=== PATIENT | female | born 1990 | race Caucasian/White ===

== ENCOUNTER 2019-09-24 18:51 | Emergency (ER) | payer MEDICAID ==
[2019-09-24] MEDS ORDERED: Sodium Chloride 0.9% 10 ML Syringe FLUSH PRN (19:21)
[2019-09-24] MEDS ORDERED: Sodium Chloride 0.9% 2.5 ML Syringe FLUSH PRN (19:21)
[2019-09-24] MEDS ORDERED: Aspirin 81 MG Tab.Chew PO ONE (19:21)
--- NOTE | 2019-09-24 19:26 | EDM.PDOC ---
ED HPI GENERAL MEDICAL PROBLEM - General Chief Complaint: Chest Pain Stated Complaint: SHORT PAIN INARM Time Seen by Provider: 09/24/19 19:12 - History of Present Illness INITIAL COMMENTS - FREE TEXT/NARRATIVE: HISTORY AND PHYSICAL: History of present illness: The patient is a 29-year-old female with no significant cardiac or pulmonary history who presents with complaints of mid back pain that stabs and radiates to her mid chest that started about an hour and a half ago. According to the patient she had a normal day without any systemic issues and during which she ate and drank and did her normal activities as a [id number] mom. She says that she was at rest when this started and she felt like someone had stabbed her in the back and it went through to her anterior chest. It does not radiate to her neck, she does have a separate ache in her left neck but it does not originate from this back and chest pain. She has no weakness numbness or tingling in her upper extremities no vomiting but did have some nausea when the pain started. She is currently not nauseated and has no abdominal pain. She has had a dry cough for the last 2 days but she is not concerned about that reported she have any fever with this. She is a smoker of one pack per day and her only significant family history as above mother with mitral valve prolapse. She does drink a lot of coffee throughout the day for total of one 12 cup pot. She has no recent travel and no leg pain or swelling. She says when the discomfort started it was a 9/10 and currently is 5/10. She did take 1 g of Tylenol prior to coming here as her only medication. She has no history of food intolerance and does not take antacids on any regular basis. She has a history of bipolar and a bilateral tubal ligation but no other abdominal surgical history. She has no GI history. She says the pain is worse with deep breathing and certain movements and she denies any recent trauma. She says that she does lift her 3-year-old child a lot who weighs about 50 pounds. Review of systems: As per history of present illness and below otherwise all systems reviewed and negative. Past medical history: As per history of present illness and as reviewed below otherwise noncontributory. Surgical history: As per history of present illness and as reviewed below otherwise noncontributory. Social history: No reported history of drug or alcohol abuse. Family history: As per history of present illness and as reviewed below otherwise noncontributory. Physical exam: General: Well-developed well-nourished overweight female who is nontoxic and vital signs are noted by me. She is speaking clearly and easily without breathlessness HEENT: Atraumatic, normocephalic, , negative for conjunctival pallor or scleral icterus, mucous membranes moist, throat clear, neck supple, nontender, trachea midline. Lungs: Clear to auscultation, breath sounds equal bilaterally, chest wall at the mid sternum and costochondral areas has reproducible tenderness without defects deformities or crepitus. There are no soft tissue changes. When I palpate this area the patient says this does reproduce her pain. She has no wheezing or stridor Heart: S1S2, regular, negative for clicks, rubs, or JVD. Abdomen: Soft, nondistended, nontender. Negative for masses or hepatosplenomegaly. Negative for costovertebral tenderness. Pelvis: Stable nontender. Genitourinary: Deferred. Rectal: Deferred. Extremities: Atraumatic, negative for cords or calf pain. Neurovascular unremarkable. No pedal edema or leg asymmetry Neuro: Awake, alert, oriented. Cranial nerves II through XII unremarkable. Cerebellum unremarkable. Motor and sensory unremarkable throughout. Exam nonfocal. Diagnostics: EKG CBC CMP amylase lipase INR troponin d-dimer chest x-ray CTA Chest Blood pressure in right and left arms Therapeutics: IV O2 monitor aspirin sublingual nitroglycerin Nitropaste toradol After 2 sublingual nitroglycerin the patient no longer has any chest pain. We will place a half an inch of nitro paste. In light of the slightly positive d- dimer we will proceed to do CTA of the chest. Blood pressure in the left arm is 112/76 and in the right arm is 120/75 As we're waiting for the CT scan results I did pass by the patient's room and here the patient's cough which is somewhat harsh sounding and dry. She is aware that we are waiting for the results. I discussed with the patient all testing results including the CTA of the chest and options for either 23 hour admission or follow-up with Dr. Charles at [facility]. The patient does not have a classic presentation and although she responded to nitroglycerin there is reproducibility to her chest pain. She is currently speaking with her family and deciding what she would like to do but I stressed to her that I cannot rule out a cardiac event with just one set of testing and that the more conservative and safer approach would be for observation. She states understanding. Family is now at bedside and the patient would like to go home and follow-up as an outpatient. We will remove the Nitropaste and have advised [id number] nonsteroidals to help with pain and to contact her provider at [facility] first thing in the morning for follow-up Impression: Atypical Chest pain and back pain Definitive disposition and diagnosis as appropriate pending reevaluation and review of above. chest pain Pain Score (Numeric/FACES): 8 - Related Data Allergies Allergy/AdvReac Type Severity Reaction Status Date / Time Penicillins Allergy Other Verified 09/24/19 18:56 Home Meds: Home Meds . [No Known Home Meds] 09/24/19 [History] Past Medical History - Past Health History Medical/Surgical History: Denies Medical/Surgical History Psychiatric History: Reports: Bipolar - Past Surgical History Female Surgical History: Reports: Tubal Ligation Social & Family History - Family History Family Medical History: Noncontributory - Tobacco Use Smoking Status *Q: Current Every Day Smoker Years of Tobacco use: 13 Packs/Tins Daily: 1 - Recreational Drug Use Recreational Drug Use: No ED ROS GENERAL - Review of Systems Review Of Systems: ROS reveals no pertinent complaints other than HPI. ED EXAM, GENERAL - Physical Exam Exam: See Below (See dictation) Course - Vital Signs Last Recorded V/S: Last Vital Signs Temp 36.8 C 09/24/19 18:54 Pulse 74 09/24/19 21:30 Resp 17 09/24/19 21:30 BP 117/75 09/24/19 21:30 Pulse Ox 97 09/24/19 21:30 - Orders/Labs/Meds Orders: Active Orders 24 hr Category Date Time Status Cardiac Monitoring [RC] . DIRECTED Care 09/24/19 19:20 Active Communication Order [RC] STAT Care 09/24/19 19:20 Active EKG Documentation Completion [RC] STAT Care 09/24/19 19:20 Active Oxygen Therapy, ED [RC] ASDIRECTED Care 09/24/19 19:20 Active Pulse Oximetry [RC] ASDIRECTED Care 09/24/19 19:20 Active Nitroglycerin [Nitrostat] Med 09/24/19 19:21 Active 0.4 mg SL Q5M PRN Sodium Chloride 0.9% [Saline Flush] Med 09/24/19 19:21 Active 10 ml FLUSH ASDIRECTED PRN Sodium Chloride 0.9% [Saline Flush] Med 09/24/19 19:21 Active 2.5 ml FLUSH ASDIRECTED PRN Saline Lock Insert [OM.PC] Stat Oth 09/24/19 19:20 Ordered Medication Orders Nitroglycerin (Nitrostat) 0.4 mg SL Q5M PRN PRN Reason: Chest Pain Last Admin: 09/24/19 19:41 Dose: 0.4 mg Admin: 09/24/19 19:36 Dose: 0.4 mg Sodium Chloride (Saline Flush) 10 ml FLUSH ASDIRECTED PRN PRN Reason: Keep Vein Open Last Admin: 09/24/19 19:36 Dose: 10 ml Sodium Chloride (Saline Flush) 2.5 ml FLUSH ASDIRECTED PRN PRN Reason: Keep Vein Open Last Admin: 09/24/19 19:36 Dose: 2.5 ml Labs: Laboratory Tests 09/24/19 09/24/19 09/24/19 Range/Units 18:58 18:58 18:58 WBC 6.39 (4.0-11.0) K/uL RBC 4.88 (4.30-5.90) M/uL Hgb 14.1 (12.0-16.0) g/dL Hct 41.9 (36.0-46.0) % MCV 85.9 (80.0-98.0) fL MCH 28.9 (27.0-32.0) pg MCHC 33.7 (31.0-37.0) g/dL RDW Std Deviation 39.5 (28.0-62.0) fl RDW Coeff of Jean Claude 13 (11.0-15.0) % Plt Count 215 (150-400) K/uL MPV 10.70 (7.40-12.00) fL Neut % (Auto) 58.0 (48.0-80.0) % Lymph % (Auto) 30.7 (16.0-40.0) % [facility] % (Auto) 7.7 (0.0-15.0) % Eos % (Auto) 3.6 (0.0-7.0) % Baso % (Auto) 0.0 (0.0-1.5) % Neut # (Auto) 3.7 (1.4-5.7) K/uL Lymph # (Auto) 2.0 (0.6-2.4) K/uL [facility] # (Auto) 0.5 (0.0-0.8) K/uL Eos # (Auto) 0.2 (0.0-0.7) K/uL Baso # (Auto) 0.0 (0.0-0.1) K/uL Nucleated RBC % 0.0 /100WBC Nucleated RBCs # 0 K/uL INR 0.93 D-Dimer, Quantitative 0.58 H (0.0-0.50) mg/L FEU Sodium 141 (136-145) mmol/L Potassium 4.0 (3.5-5.1) mmol/L Chloride 105 (98-107) mmol/L Carbon Dioxide 27.2 (21.0-32.0) mmol/L BUN 18 (7.0-18.0) mg/dL Creatinine 1.3 H (0.6-1.0) mg/dL Est Cr Clr Drug Dosing 58.70 mL/min Estimated GFR (MDRD) 47.8 ml/min Glucose 95 (74-106) mg/dL Calcium 8.9 (8.5-10.1) mg/dL Total Bilirubin 0.4 (0.2-1.0) mg/dL AST 16 (15-37) IU/L ALT 17 (14-63) IU/L Alkaline Phosphatase 46 (46-116) U/L Troponin I <0.050 (0.000-0.056) ng/mL Total Protein 7.4 (6.4-8.2) g/dL Albumin 4.0 (3.4-5.0) g/dL Globulin 3.4 (2.6-4.0) g/dL Albumin/Globulin Ratio 1.2 (0.9-1.6) Amylase 53 (25-115) U/L Lipase 205 (73-393) U/L Meds: Medications Generic Name Dose Route Start Last Admin Trade Name Freq PRN Reason Stop Dose Admin Nitroglycerin 0.4 mg 09/24/19 19:21 09/24/19 19:41 Nitrostat SL 0.4 mg Q5M PRN Administration Chest Pain Sodium Chloride 10 ml 09/24/19 19:21 09/24/19 19:36 Saline Flush FLUSH 10 ml ASDIRECTED PRN Administration Keep Vein Open Sodium Chloride 2.5 ml 09/24/19 19:21 09/24/19 19:36 Saline Flush FLUSH 2.5 ml ASDIRECTED PRN Administration Keep Vein Open Discontinued Medications Generic Name Dose Route Start Last Admin Trade Name Freq PRN Reason Stop Dose Admin Aspirin 324 mg 09/24/19 19:21 09/24/19 19:34 Aspirin PO 09/24/19 19:22 324 mg ONETIME ONE Administration Iopamidol 100 ml 09/24/19 20:48 09/24/19 20:49 Isovue-370 (76%) IVPUSH 09/24/19 20:49 100 ml ONETIME STA Administration Ketorolac Tromethamine 30 mg 09/24/19 20:06 09/24/19 20:10 Toradol IVPUSH 09/24/19 20:07 30 mg ONETIME ONE Administration Nitroglycerin 0.5 gm 09/24/19 19:47 09/24/19 20:01 Nitro-Bid 2% TOP 09/24/19 19:48 0.5 gm ONETIME ONE Administration Departure - Departure Time of Disposition: 21:50 Disposition: Home, Self-Care 01 Condition: Good Clinical Impression: Atypical chest pain Back pain Qualifiers: Back pain location: thoracic back pain Chronicity: acute Back pain laterality: bilateral Qualified Code(s): M54.6 - Pain in thoracic spine - Discharge Information Referrals: PCP,Not In Area [Primary Care Provider] - Forms: ED Department Discharge Additional Instructions: The following information is given to patients seen in the emergency department who are being discharged to home. This information is to outline your options for follow-up care. We provide all patients seen in our emergency department with a follow-up referral. The need for follow-up, as well as the timing and circumstances, are variable depending upon the specifics of your emergency department visit. If you don't have a primary care physician on staff, we will provide you with a referral. We always advise you to contact your personal physician following an emergency department visit to inform them of the circumstance of the visit and for follow-up with them and/or the need for any referrals to a consulting specialist. The emergency department will also refer you to a specialist when appropriate. This referral assures that you have the opportunity for followup care with a specialist. All of these measure are taken in an effort to provide you with optimal care, which includes your followup. Under all circumstances we always encourage you to contact your private physician who remains a resource for coordinating your care. When calling for followup care, please make the office aware that this follow-up is from your recent emergency room visit. If for any reason you are refused follow-up, please contact the [facility] emergency department at and ask to speak to the emergency department charge nurse. [address] [place] [address] Please call the clinic first thing in the morning and make an appointment to see Dr. Charles or one of his associates, making sure to tell them that you were seen in the emergency department tonight and had an evaluation but need further care. Try to reduce caffeine intake and push hydration. Try to reduce and/or eliminate smoking in the near future. Use [id number] medications such as Motrin/ibuprofen/Aleve to help with discomfort and pain. Return to ER as needed as discussed - My Orders Last 24 Hours: My Active Orders 09/24/19 19:20 Cardiac Monitoring [RC] . DIRECTED Communication Order [RC] STAT EKG Documentation Completion [RC] STAT Oxygen Therapy, ED [RC] ASDIRECTED Pulse Oximetry [RC] ASDIRECTED Saline Lock Insert [OM.PC] Stat 09/24/19 19:21 Nitroglycerin [Nitrostat] 0.4 mg SL Q5M PRN Sodium Chloride 0.9% [Saline Flush] 10 ml FLUSH ASDIRECTED PRN Sodium Chloride 0.9% [Saline Flush] 2.5 ml FLUSH ASDIRECTED PRN - Assessment/Plan Last 24 Hours: My Active Orders 09/24/19 19:20 Cardiac Monitoring [RC] . DIRECTED Communication Order [RC] STAT EKG Documentation Completion [RC] STAT Oxygen Therapy, ED [RC] ASDIRECTED Pulse Oximetry [RC] ASDIRECTED Saline Lock Insert [OM.PC] Stat 09/24/19 19:21 Nitroglycerin [Nitrostat] 0.4 mg SL Q5M PRN Sodium Chloride 0.9% [Saline Flush] 10 ml FLUSH ASDIRECTED PRN Sodium Chloride 0.9% [Saline Flush] 2.5 ml FLUSH ASDIRECTED PRN
[2019-09-24] MEDS: Nitroglycerin 0.4 MG Tab.SL SL PRN ×2 (19:36→19:41)
[2019-09-24 19:41] LABS: BLOOD UREA NITROGEN,BUN 18 mg/dL (7.0-18.0); CARBON DIOXIDE,CO2 27.2 mmol/L (21.0-32.0); CHLORIDE,CL 105 mmol/L (98-107); GLUCOSE RANDOM 95 mg/dL (74-106); LIPASE 205 U/L (73-393); SODIUM,NA 141 mmol/L (136-145)
[2019-09-24] MEDS ORDERED: Nitroglycerin 2% Oint 1 GM UD Packet TOP ONE (19:47)
--- NOTE | 2019-09-24 19:48 | CR ---
Indication: Chest pain Technique: Chest 1 view Comparison: None Findings/Impression: Cardiovascular and mediastinum: Heart size and vasculature are normal in caliber and appearance. Mediastinum is within normal limits. Lungs and pleural space: Lungs are clear. No sign of infiltrate or mass. No sign of pleural effusion. No pneumothorax. Bones and soft tissues: No significant findings. Dictated by Claudia Cosby MD @ Sep 24 2019 7:45PM Signed by Dr. Claudia Cosby @ Sep 24 2019 7:45PM
[2019-09-24] MEDS ORDERED: Ketorolac 30 MG/ML SDV IVPUSH ONE (20:06)
[2019-09-24] MEDS ORDERED: Iopamidol 755 Mg/ML 100 ML Bottle IVPUSH STA (20:48)
--- NOTE | 2019-09-24 21:33 | CT ---
INDICATION: Chest pain, shortness of breath. Elevated D-dimer. Rule out PE or dissection. COMPARISON: None available TECHNIQUE: CT examination of the chest was performed with the uneventful intravenous administration of 100 cc of Isovue 370 while 1 and 3 mm thick axial sections were obtained through the pulmonary arteries. Please note that all CT scans at this facility use dose modulation, iterative reconstruction, and/or weight-based dosing when appropriate to reduce radiation dose to as low as reasonably achievable. FINDINGS: : There is no sign of pulmonary embolism, with normal enhancement and branching of the pulmonary arteries. There is mild dependent atelectasis in the posterior portions of the lungs. The lungs are otherwise clear with no sign of significant infiltrate or mass. There is no sign of mediastinal or hilar mass or adenopathy. The heart is normal in appearance for the patient`s age, as are the aorta and other ascending great vessels. There is no sign of supraclavicular or axillary mass or adenopathy. The visualized superior liver, spleen, pancreas, kidneys, and adrenals are normal in appearance. The osseous structures are normal in appearance for the patient`s age. IMPRESSION: No sign of pulmonary embolism. No sign of thoracic aortic dissection or aneurysm. Normal CT of the chest with contrast. Please note that all CT scans at this facility use dose modulation, iterative reconstruction, and/or weight-based dosing when appropriate to reduce radiation dose to as low as reasonably achievable. Dictated by Kelvin Copeland MD @ Sep 24 2019 9:28PM Signed by Dr. Kelvin Copeland @ Sep 24 2019 9:32PM
--- NOTE | 2019-09-24 21:35 | CT ---
INDICATION: Abdominal pain. Rule out dissection. Elevated D-dimer. COMPARISON: None available TECHNIQUE: CT angiography of the abdomen and pelvis was performed with the uneventful intravenous administration of Isovue 370 as part of the accompanying CTA of the chest while 1 mm thick axial sections were obtained from the lung bases through the mid sacroiliac joint region. Please note that all CT scans at this facility use dose modulation, iterative reconstruction, and/or weight-based dosing when appropriate to reduce radiation dose to as low as reasonably achievable. FINDINGS: : In the abdomen, the liver, spleen, pancreas, and adrenals are normal in appearance. The kidneys are normal in appearance. The gallbladder is normal in appearance. The abdominal aorta is normal in caliber with no sign of dilatation. The celiac axis, SMA, paired bilateral renal arteries, and CORINNE are widely patent. There is no sign of retroperitoneal mass or adenopathy. The stomach, loops of small bowel, and colon in the abdomen are normal in appearance. In the pelvis, the appendix is normal in appearance with no sign of inflammatory process. The loops of small bowel and colon in the upper pelvis are normal in appearance. There is mild dependent atelectasis in the posterior lung bases. The lung bases are otherwise clear. The osseous structures are normal in appearance for the patient`s age. IMPRESSION: Normal CT angiogram of the abdominal aorta. No sign of aneurysmal dilatation or dissection. Normal CT of the abdomen with contrast. Normal CT of the superior pelvis with contrast. Please note that all CT scans at this facility use dose modulation, iterative reconstruction, and/or weight-based dosing when appropriate to reduce radiation dose to as low as reasonably achievable. Dictated by Kelvin Copeland MD @ Sep 24 2019 9:49PM Signed by Dr. Kelvin Copeland @ Sep 24 2019 9:53PM
== END 2019-09-24 22:00 | disposition home or self-care (01) ==
LOC: MW.ED 18:51
DX: R07.89 Other chest pain (principal); M54.6 Pain in thoracic spine; F17.210 Nicotine dependence, cigarettes, uncomplicated; Z88.0 Allergy status to penicillin
CPT/HCPCS: 36415; 71045; 71275; 74175; 80053; 82150; 83690; 84484; 85025; 85379; 85610; 93005; 96374; 99284; A9270; J1885; Q9967

== ENCOUNTER 2019-11-12 06:32 | Day surgery (SDC) | payer MEDICAID, BC ==
[~2019-11-12 06:32] MED LIST: Lactated Ringers 1,000 ML IV SCH; Sodium Chloride 0.9% 10 ML SDV IV PRN; Sodium Chloride 0.9% 10 ML Syringe FLUSH PRN; Sodium Chloride 0.9% 2.5 ML Syringe FLUSH PRN; ceFAZolin 2 GM in Premix Bag 1 BAG IV ONE
[2019-11-12] MEDS ORDERED: Propofol 200 MG/20 ML SDV ONE ×2 (07:06→08:17)
[2019-11-12] MEDS ORDERED: Midazolam 1 MG/ML 2 ML SDV ONE (07:15)
[2019-11-12] MEDS ORDERED: Bupivacaine 0.5% 30 ML SDV ONE (07:19)
[2019-11-12] MEDS ORDERED: Lidocaine 1% 20 ML MDV ONE (07:20)
[2019-11-12] MEDS ORDERED: Octyl 2-Cyanoacrylate 1 Tube ONE (07:20)
--- NOTE | 2019-11-12 07:21 | PCM.PREANE ---
Preanesthetic Assessment - Anesthesia/Transfusion/Family Hx Anesthesia History: Prior Anesthesia Without Reaction Family History of Anesthesia Reaction: No Transfusion History: No Prior Transfusion(s) Intubation History: Unknown - Review of Systems General: No Symptoms Pulmonary: No Symptoms Cardiovascular: No Symptoms Gastrointestinal: No Symptoms Neurological: No Symptoms Other: Reports: None - Physical Assessment Vital Signs: Last Vital Signs Temp 36.8 C 11/12/19 07:10 Pulse 64 11/12/19 07:10 Resp 15 11/12/19 07:10 BP 112/74 11/12/19 07:10 Pulse Ox 97 11/12/19 07:10 Height: 5 ft 7 in Weight: 106.594 kg ASA Class: 2 Mental Status: Alert & Oriented x3 Airway Class: Mallampati = 1 Dentition: Reports: Normal Dentition Thyro-Mental Finger Breadths: 3 Mouth Opening Finger Breadths: 3 ROM/Head Extension: Full Lungs: Clear to Auscultation, Normal Respiratory Effort Cardiovascular: Regular Rate, Regular Rhythm - Lab Values: Laboratory Last Values Urine HCG, Qual NEGATIVE (NEGATIVE) 11/12/19 06:42 - Allergies Allergies/Adverse Reactions: Allergies Allergy/AdvReac Type Severity Reaction Status Date / Time Penicillins Allergy "veins Verified 11/05/19 13:05 felt like they were on fire" - Blood Blood Available: No - Anesthesia Plan Pre-Op Medication Ordered: None - Acknowledgements Anesthesia Type Planned: MAC Pt an Appropriate Candidate for the Planned Anesthesia: Yes Alternatives and Risks of Anesthesia Discussed w Pt/Guardian: Yes Pt/Guardian Understands and Agrees with Anesthesia Plan: Yes PreAnesthesia Questionnaire - Past Health History Medical/Surgical History: Denies Medical/Surgical History HEENT History: Reports: Other (See Below) Other HEENT History: wears glasses Cardiovascular History: Reports: None Respiratory History: Reports: None Gastrointestinal History: Reports: Other (See Below) Other Gastrointestinal History: occasional heartburn Genitourinary History: Reports: Renal Calculus TRADER History: Reports: Musculoskeletal History: Reports: None Neurological History: Reports: Migraines Psychiatric History: Reports: Bipolar, Depression, Panic Attack Endocrine/Metabolic History: Reports: Obesity/BMI 30+ (BMI 36.8) Hematologic History: Reports: None Immunologic History: Reports: None Oncologic (Cancer) History: Reports: None Dermatologic History: Reports: Eczema - Past Surgical History Head Surgeries/Procedures: Reports: None HEENT Surgical History: Reports: Oral Surgery Cardiovascular Surgical History: Reports: None Respiratory Surgical History: Reports: None GI Surgical History: Reports: None Female Surgical History: Reports: Tubal Ligation Neurological Surgical History: Reports: None Musculoskeletal Surgical History: Reports: None Oncologic Surgical History: Reports: None Dermatological Surgical History: Reports: None - SUBSTANCE USE Smoking Status *Q: Current Every Day Smoker (smoked 1 ppd, trying to quit) Tobacco Use Within Last Twelve Months: Cigarettes - HOME MEDS Home Medications: Home Meds Melatonin/Pyridoxine HCl (B6) [Melatonin 5 mg Tablet] 8 tab PO BEDTIME 11/05/19 [History] - CURRENT (IN HOUSE) MEDS Current Meds: Current Medications Lactated Ringer's (Ringers, Lactated) 1,000 mls @ 125 mls/hr IV ASDIRECTED ENMA Sodium Chloride (Saline Flush) 10 ml FLUSH ASDIRECTED PRN PRN Reason: Keep Vein Open Sodium Chloride (Saline Flush) 2.5 ml FLUSH ASDIRECTED PRN PRN Reason: Keep Vein Open Sodium Chloride (Normal Saline) 10 ml IV ASDIRECTED PRN PRN Reason: IV Use Discontinued Medications Cefazolin Sodium/Dextrose 2 gm (/ Premix) 50 mls @ 100 mls/hr IV ONETIME ONE Stop: 11/10/19 11:01 Propofol (Diprivan 20 Ml) Confirm Administered Dose 400 mg .ROUTE .STK-MED ONE Stop: 11/12/19 07:07
[2019-11-12] MEDS ORDERED: ceFAZolin 1 GM Vial ONE (07:31)
[2019-11-12] MEDS ORDERED: Sodium Chloride 0.9% 20 ML ONE (07:33)
[2019-11-12] MEDS ORDERED: fentaNYL 100 MCG/2 ML SDV ONE (07:52)
[2019-11-12] MEDS ORDERED: Albuterol 6.7 GM Inhaler INH ONE (08:16)
--- NOTE | 2019-11-12 08:46 | PCM.OPNOTE ---
- General Post-Op/Procedure Note Date of Surgery/Procedure: 11/12/19 Operative Procedure(s): Left axillary cyst excision Findings: Excision 1.5 x 0.5 x 0.9 cm piece and a secondary piece excised measuring 1.5 x 0.3 x 1 cm Pre Op Diagnosis: Left axillary cyst Post-Op Diagnosis: same Anesthesia Technique: MAC Primary Surgeon: Suyapa Singh EBL in mLs: 5 Condition: Good
--- NOTE | 2019-11-12 08:58 | PCM.POSTAN ---
POST ANESTHESIA ASSESSMENT - MENTAL STATUS Mental Status: Alert, Oriented - VITAL SIGNS Vital Signs: Last Vital Signs Temp 96.6 F 11/12/19 08:41 Pulse 50 L 11/12/19 08:56 Resp 14 11/12/19 08:56 BP 102/61 11/12/19 08:56 Pulse Ox 100 11/12/19 08:56 - RESPIRATORY Respiratory Status: Respiratory Rate WNL, Airway Patent, O2 Saturation Stable - CARDIOVASCULAR CV Status: Pulse Rate WNL, Blood Pressure Stable - GASTROINTESTINAL GI Status: No Symptoms - PAIN Pain Score: 0 - POST OP HYDRATION Hydration Status: Adequate & Stable
--- NOTE | 2019-11-12 09:05 | PCM.POSTAN ---
POST ANESTHESIA ASSESSMENT - MENTAL STATUS Mental Status: Alert, Oriented - VITAL SIGNS Vital Signs: Last Vital Signs Temp 35.9 C 11/12/19 08:41 Pulse 50 L 11/12/19 08:56 Resp 14 11/12/19 08:56 BP 102/61 11/12/19 08:56 Pulse Ox 100 11/12/19 08:56 - RESPIRATORY Respiratory Status: Respiratory Rate WNL, Airway Patent, O2 Saturation Stable - CARDIOVASCULAR CV Status: Pulse Rate WNL, Blood Pressure Stable - GASTROINTESTINAL GI Status: No Symptoms - PAIN Pain Score: 0 - POST OP HYDRATION Hydration Status: Adequate & Stable - OBSERVATIONS Free Text/Narrative:: no anesthesia problems
--- NOTE | 2019-11-12 09:32 | PCM48HPAN ---
Post Anesthesia Note - EVALUATION WITHIN 48HRS OF ANESTHETIC Vital Signs in Normal Range: Yes Patient Participated in Evaluation: Yes Respiratory Function Stable: Yes Airway Patent: Yes Cardiovascular Function Stable: Yes Hydration Status Stable: Yes Pain Control Satisfactory: Yes Nausea and Vomiting Control Satisfactory: Yes Mental Status Recovered: Yes Vital Signs: Last Vital Signs Temp 36.6 C 11/12/19 09:05 Pulse 60 11/12/19 09:05 Resp 15 11/12/19 09:05 BP 100/68 11/12/19 09:05 Pulse Ox 100 11/12/19 09:05 - COMMENTS/OBSERVATIONS Free Text/Narrative:: No anesthesia problems
--- NOTE | 2019-11-12 11:32 | OR ---
SURGEON: SUYAPA SINGH MD DATE OF PROCEDURE: 11/12/2019 PREOPERATIVE DIAGNOSIS: Left axillary cyst. POSTOPERATIVE DIAGNOSIS: Left axillary cyst. PROCEDURE PERFORMED: Excision of left axillary cyst. PRIMARY SURGEON: Suyapa Singh MD. ANESTHESIA: MAC, local. FLUIDS: See Anesthesia record. ESTIMATED BLOOD LOSS: 5 mL. FINDINGS: 1.5 x 0.5 x 0.9 cm left axillary cyst. 1.5 x 0.3 x 1 cm extra margin. COMPLICATIONS: None. INDICATIONS: The patient is a 29-year-old female who presented to my clinic with a left axillary lump. Ultrasound showed what appeared to be a superficial subcutaneous cyst in the area of concern. The decision was made to take her to the operating room to have this excised. I explained the procedure; expected perioperative course; and risks including bleeding, infection, or damage to surrounding structures. She verbalized understanding and wishes to proceed. PROCEDURE IN DETAIL: The patient was brought into the OR, placed on the OR table in supine position with the left arm extended at a 90-degree angle. A time-out was completed verifying the patient's name, age, date of , allergies, and procedure to be performed. Monitored anesthesia care was induced. The left axilla was prepped and draped in usual standard fashion. I anesthetized the area underneath the area of concern with 0.5% Marcaine plain. A 10 blade was used to make an elliptical incision along the skin lines around the lesion. Cautery was used to dissect down to the level of the axillary fat. I then undermined the area using cautery. The lesion was removed from the field and placed on the back table. It measured 1.5 x 0.5 x 0.9 cm in size. I then reinspected the field. The superior lateral edge seemed to have some nodularity to it, so I decided to perform a secondary excision along this edge. This was performed using cautery. This piece was placed on the back table and measured 1.5 x 0.3 x 1 cm in size. They were placed together and sent to pathology, labeled as left axillary cyst. I inspected my operative field. Hemostasis was achieved with electrocautery. I could not feel any further nodularity in the area. I closed the operative site with interrupted 3-0 Vicryl in the axillary fat and subcutaneous fat layer. The skin was then closed with a running 4-0 Monocryl stitch. Dermabond and sterile dressings were applied. The patient tolerated the procedure well and was transferred to the PACU in stable condition. MAXIMILIAN LOPEZ /[id number] MTDD
== END 2019-11-12 09:42 | disposition home or self-care (01) ==
LOC: MW.SDS 06:32
PROVIDERS: ATTEND Surgery
DX: L72.0 Epidermal cyst (principal); G43.909 Migraine, unspecified, not intractable, without status migrainosus; F17.210 Nicotine dependence, cigarettes, uncomplicated; E66.9 Obesity, unspecified; Z88.0 Allergy status to penicillin; Z79.899 Other long term (current) drug therapy; Z68.36 Body mass index [BMI] 36.0-36.9, adult
CPT/HCPCS: 11403; 12031; 81025; 88304; 88312; 88313; A9270; J0690; J2250; J2704; J3010; J3490; J7120; 00400; J2001

== ENCOUNTER 2019-11-19 13:48 | Emergency (ER) | payer BC ==
--- NOTE | 2019-11-19 14:20 | EDM.PDOC ---
ED HPI GENERAL MEDICAL PROBLEM - General Chief Complaint: Wound Recheck Stated Complaint: PT STITCHES BROKE OPEN IN L ARMPIT Time Seen by Provider: 11/19/19 14:12 Source of Information: Reports: Patient History Limitations: Reports: No Limitations - History of Present Illness INITIAL COMMENTS - FREE TEXT/NARRATIVE: HISTORY AND PHYSICAL: History of present illness: Patient is a 29 year old female who presents to the ED with c/o post-operative sutures being "popped open". A week ago, she had a cyst removed from her left axilla requiring sutures. Last night she states she turned wrong and felt it "pop open". She has a wound dehiscence without any redness or drainage. Attempted to get in to se Dr Singh, but unable to get in till tomorrow. Patient denies any fever, chills, headache, change in vision, syncope or near syncope. Denies any chest pain, back pain, shortness of breath or cough. Denies any abdominal pain, nausea, vomiting, diarrhea, constipation or dysuria. Has not noted any blood in urine or stool. Patient has been eating and drinking appropriately. Review of systems: As per history of present illness and below otherwise all systems reviewed and negative. Past medical history: As per history of present illness and as reviewed below otherwise noncontributory. Surgical history: As per history of present illness and as reviewed below otherwise noncontributory. Social history: See social history for further information Family history: As per history of present illness and as reviewed below otherwise noncontributory. Physical exam: General:Well developed and well nourished 29 year old female. A&O x 3. Nontoxic appearing and in no acute distress. HEENT: Atraumatic, normocephalic, pupils equal and reactive bilaterally, negative for conjunctival pallor or scleral icterus, mucous membranes moist, trachea midline. No drooling or trismus noted. No meningeal signs. No hot potato voice noted. Lungs: Clear to auscultation, breath sounds equal bilaterally, chest nontender. Heart: S1S2, regular rate and rhythm without overt murmur Abdomen: Soft, nondistended, nontender. Skin: Wound dehiscense with 1 cm opening, without drainage. Otherwise skin is intact, warm, dry. No lesions or rashes noted. Extremities: Atraumatic, moves all extremities per self without difficulty or deficits, negative for cords or calf pain. Neurovascular unremarkable. Neuro: Awake, alert, oriented. Cranial nerves II through XII unremarkable. Cerebellum unremarkable. Motor and sensory unremarkable throughout. Exam nonfocal. Notes: Tissue biopsy results show: Inflamed ruptured epidermal cyst, skin and subcutaneous tissue, left axilla, excision of left axillary cyst.Negative for fungus, PAS stain of the tissue. Negative for acid fast bacilli, AFB stain of the tissue. Dr Singh happened to be here and saw the patient was in the ED. She evaluated the patient. Requests Clindamycin and [facility] here. Supportive care measures were reviewed and discussed. Voices understanding and is agreeable to plan of care. Denies any further questions or concerns at this time. Diagnostics: None Therapeutics: None Prescription: Uma Pattonco (#20) Impression: Wound dehiscence Plan: 1. Keep the area clean and dry. Continue to monitor for signs of infection. Continue to follow Dr Singh's post-operative instructions. 2. Tylenol and/or Ibuprofen as needed for pain/fever. 3. Follow up with Francisco as arranged. Return to the ED as needed and as discussed. Definitive disposition and diagnosis as appropriate pending reevaluation and review of above. Definitive disposition and diagnosis as appropriate pending reevaluation and review of above. left axilla incision Pain Score (Numeric/FACES): 6 - Related Data Allergies Allergy/AdvReac Type Severity Reaction Status Date / Time Penicillins Allergy "veins Verified 11/19/19 14:21 felt like they were on fire" Home Meds: Home Meds Melatonin/Pyridoxine HCl (B6) [Melatonin 5 mg Tablet] 8 tab PO BEDTIME 11/05/19 [History] Acetaminophen/HYDROcodone [[place] 325-5 MG] 1 dose PO Q4H #20 tablet 11/19/19 [Rx ] Clindamycin HCl [Cleocin HCl] 450 mg PO TID 5 Days #45 capsule 11/19/19 [Rx] Past Medical History - Past Health History Medical/Surgical History: Denies Medical/Surgical History HEENT History: Reports: Other (See Below) Other HEENT History: wears glasses Cardiovascular History: Reports: None Respiratory History: Reports: None Gastrointestinal History: Reports: Other (See Below) Other Gastrointestinal History: occasional heartburn Genitourinary History: Reports: Renal Calculus CLIENT RELATIONSHIP CONSULTANT History: Reports: Musculoskeletal History: Reports: None Neurological History: Reports: Migraines Psychiatric History: Reports: Bipolar, Depression, Panic Attack Endocrine/Metabolic History: Reports: Obesity/BMI 30+ (BMI 36.8) Hematologic History: Reports: None Immunologic History: Reports: None Oncologic (Cancer) History: Reports: None Dermatologic History: Reports: Eczema - Past Surgical History Head Surgeries/Procedures: Reports: None HEENT Surgical History: Reports: Oral Surgery Cardiovascular Surgical History: Reports: None Respiratory Surgical History: Reports: None GI Surgical History: Reports: None Female Surgical History: Reports: Tubal Ligation Neurological Surgical History: Reports: None Musculoskeletal Surgical History: Reports: None Oncologic Surgical History: Reports: None Dermatological Surgical History: Reports: None Social & Family History - Family History Family Medical History: Noncontributory ED ROS GENERAL - Review of Systems Review Of Systems: Comprehensive ROS is negative, except as noted in HPI. ED EXAM, SKIN/RASH Exam: See Below (See dictation) Course - Vital Signs Last Recorded V/S: Last Vital Signs Temp 98.0 F 11/19/19 14:15 Pulse 81 11/19/19 14:15 Resp 16 11/19/19 14:15 BP 114/76 11/19/19 14:15 Pulse Ox 98 11/19/19 14:15 - Orders/Labs/Meds Orders: Active Orders 24 hr Category Date Time Status Notify Provider Consults [RC] ASDIRECTED Care 11/19/19 14:21 Ordered Consult to Physician [CONS] Stat Cons 11/19/19 14:20 Ordered Departure - Departure Time of Disposition: 14:21 Disposition: Home, Self-Care 01 Clinical Impression: Wound dehiscence, surgical Qualifiers: Encounter type: initial encounter Qualified Code(s): T81.31XA - Disruption of external operation (surgical) wound, not elsewhere classified, initial encounter - Discharge Information Prescriptions: Acetaminophen/HYDROcodone [[place] 325-5 MG] 1 dose PO Q4H #20 tablet Clindamycin HCl [Cleocin HCl] 450 mg PO TID 5 Days #45 capsule Instructions: Wound Dehiscence, [id number] Referrals: Gigi Charles MD [Primary Care Provider] - Forms: ED Department Discharge Additional Instructions: The following information is given to patients seen in the emergency department who are being discharged to home. This information is to outline your options for follow-up care. We provide all patients seen in our emergency department with a follow-up referral. The need for follow-up, as well as the timing and circumstances, are variable depending upon the specifics of your emergency department visit. If you don't have a primary care physician on staff, we will provide you with a referral. We always advise you to contact your personal physician following an emergency department visit to inform them of the circumstance of the visit and for follow-up with them and/or the need for any referrals to a consulting specialist. The emergency department will also refer you to a specialist when appropriate. This referral assures that you have the opportunity for follow-up care with a specialist. All of these measure are taken in an effort to provide you with optimal care, which includes your follow-up. Under all circumstances we always encourage you to contact your private physician who remains a resource for coordinating your care. When calling for follow-up care, please make the office aware that this follow-up is from your recent emergency room visit. If for any reason you are refused follow-up, please contact the [facility] Emergency Department at and asked to speak to the emergency department charge nurse. [facility] [address] [place] [address] [id number] [address] [address] 1. Keep the area clean and dry. Continue to monitor for signs of infection. Continue to follow Dr Singh's post-operative instructions. 2. Tylenol and/or Ibuprofen as needed for pain/fever. 3. Follow up with Francisco as arranged. Return to the ED as needed and as discussed. Sepsis Event Note - Focused Exam Vital Signs: Vital Signs Temp Pulse Resp BP Pulse Ox 11/19/19 14:15 98.0 F 81 16 114/76 98 Date Exam was Performed: 11/19/19 Time Exam was Performed: 14:30 - My Orders Last 24 Hours: My Active Orders 11/19/19 14:20 Consult to Physician [CONS] Stat 11/19/19 14:21 Notify Provider Consults [RC] ASDIRECTED - Assessment/Plan Last 24 Hours: My Active Orders 11/19/19 14:20 Consult to Physician [CONS] Stat 11/19/19 14:21 Notify Provider Consults [RC] ASDIRECTED
--- NOTE | 2019-11-19 14:35 | PCM.CONS ---
H&P History of Present Illness - General Date of Service: 11/19/19 Source of Information: Patient History Limitations: Reports: No Limitations - History of Present Illness Initial Comments - Free Text/Narative: 29 year old female who underwent an excision of a left axillary epidermal inclusion cyst ~ 1 week ago. The patient accidently reached above her head and felt a pop. The wound has been draining and painful ever since. She complained of swelling as well and redness. She called the office 2 days ago and was prescribed clindamycin but state the prescription wasnt there when they went to the pharmacy. She called today and said her symptoms were worse. She was advised to go to the ER. Her VS were stable on arrival. left axilla incision Pain Score (Numeric/FACES): 6 - Related Data Allergies/Adverse Reactions: Allergies Allergy/AdvReac Type Severity Reaction Status Date / Time Penicillins Allergy "veins Verified 11/19/19 14:21 felt like they were on fire" Home Medications: Home Meds Melatonin/Pyridoxine HCl (B6) [Melatonin 5 mg Tablet] 40 mg PO BEDTIME 11/05/19 [History] Acetaminophen/HYDROcodone [[place] 325-5 MG] 1 dose PO Q4H #20 tablet 11/19/19 [Rx ] Clindamycin HCl [Cleocin HCl] 450 mg PO TID 5 Days #45 capsule 11/19/19 [Rx] Past Medical History - Past Health History Medical/Surgical History: Denies Medical/Surgical History HEENT History: Reports: Other (See Below) Other HEENT History: wears glasses Cardiovascular History: Reports: None Respiratory History: Reports: None Gastrointestinal History: Reports: Other (See Below) Other Gastrointestinal History: occasional heartburn Genitourinary History: Reports: Renal Calculus WEARING [employer] History: Reports: Musculoskeletal History: Reports: None Neurological History: Reports: Migraines Psychiatric History: Reports: Bipolar, Depression, Panic Attack Endocrine/Metabolic History: Reports: Obesity/BMI 30+ (BMI 36.8) Hematologic History: Reports: None Immunologic History: Reports: None Oncologic (Cancer) History: Reports: None Dermatologic History: Reports: Eczema - Infectious Disease History Infectious Disease History: Reports: Chicken Pox - Past Surgical History Head Surgeries/Procedures: Reports: None HEENT Surgical History: Reports: Oral Surgery Cardiovascular Surgical History: Reports: None Respiratory Surgical History: Reports: None GI Surgical History: Reports: None Female Surgical History: Reports: Tubal Ligation Neurological Surgical History: Reports: None Musculoskeletal Surgical History: Reports: None Oncologic Surgical History: Reports: None Dermatological Surgical History: Reports: None Social & Family History - Family History Family Medical History: Noncontributory - Tobacco Use Smoking Status *Q: Current Every Day Smoker Years of Tobacco use: 16 Packs/Tins Daily: 0.5 - Recreational Drug Use Recreational Drug Use: No H&P Review of Systems - Review of Systems: Review Of Systems: Comprehensive ROS is negative, except as noted in HPI. Exam - Exam Exam: See Below - Vital Signs Vital Signs: Last Vital Signs Temp 36.7 C 11/19/19 14:15 Pulse 81 11/19/19 14:15 Resp 16 11/19/19 14:15 BP 114/76 11/19/19 14:15 Pulse Ox 98 11/19/19 14:15 Weight: 106.594 kg - Exam General: Alert, Oriented HEENT: Conjunctiva Clear, Mucosa Moist & Thurman, Posterior Pharynx Clear Lungs: Normal Respiratory Effort Cardiovascular: Regular Rate Skin: Other (Partial dehisence of the lateral edge of the wound. No cellulitis or warm. Tenderness and some serosanguinous driange from the wound. ) Sepsis Event Note - Evaluation Sepsis Screening Result: No Definite Risk - Focused Exam Vital Signs: Vital Signs Temp Pulse Resp BP Pulse Ox 11/19/19 14:15 36.7 C 81 16 114/76 98 Date Exam was Performed: 11/19/19 Time Exam was Performed: 14:29 Consult PN Assessment/Plan Procedures: Procedures ASSAY OF AMYLASE (09/24/19) ASSAY OF LIPASE (09/24/19) ASSAY OF TROPONIN QUANT (09/24/19) COMPLETE CBC W/AUTO DIFF WBC (09/24/19) COMPREHEN METABOLIC PANEL (09/24/19) CT ANGIO ABDOM W/O & W/DYE (09/24/19) CT ANGIOGRAPHY CHEST (09/24/19) ELECTROCARDIOGRAM TRACING (09/24/19) EMERGENCY DEPT VISIT (09/24/19) FIBRIN DEGRADATION QUANT (09/24/19) PROTHROMBIN TIME (09/24/19) ROUTINE VENIPUNCTURE (09/24/19) THER/PROPH/DIAG INJ IV PUSH (09/24/19) ULTRASOUND BREAST COMPLETE (11/03/19) URINE TEST (11/12/19) X-RAY EXAM CHEST 1 VIEW (09/24/19) (1) Wound dehiscence, surgical SNOMED Code(s): 359233738 Code(s): T81.31XA - DISRUPTION OF EXTERNAL OPERATION (SURGICAL) WOUND, NEC, INIT Current Visit: Yes Problem List Initiated/Reviewed/Updated: Yes Plan: We discussed her pathology which showed a ruptured and chronically inflamed epidermal inclusion cyst. The wound could have dehisced secondary to her smoking vs the over extension of the arm and/or because of a possible infection due to the area being damp and moist. The wound was packed with dry dressings. She should place a 4 x 4 in the wound and secure it with tape at least daily or as often enough to keep clean and dry. Will start on clindamycin to prevent any possible infection and treat pain with prn [place]. I will see her in clinic next saturday for a wound check.
== END 2019-11-19 14:45 | disposition home or self-care (01) ==
LOC: MW.ED 13:48
DX: T81.31XA Disruption of external operation (surgical) wound, not elsewhere classified, initial encounter (principal); Z88.0 Allergy status to penicillin; E66.9 Obesity, unspecified; Z68.36 Body mass index [BMI] 36.0-36.9, adult; Z79.899 Other long term (current) drug therapy
CPT/HCPCS: 99283

== ENCOUNTER 2020-01-04 18:27 | Emergency (ER) | payer BC ==
[2020-01-04] MEDS ORDERED: Albuterol/Ipratropium 3.0-0.5 MG/3 ML Neb Soln NEB ONE (20:03)
[2020-01-04] MEDS ORDERED: Benzonatate 100 MG Cap PO ONE (20:04)
[2020-01-04] MEDS ORDERED: predniSONE 20 MG Tab PO ONE (20:04)
--- NOTE | 2020-01-04 20:11 | EDM.PDOC ---
ED HPI GENERAL MEDICAL PROBLEM - General Chief Complaint: Respiratory Problem Stated Complaint: HARD TIME BREATHING Time Seen by Provider: 01/04/20 20:05 - History of Present Illness INITIAL COMMENTS - FREE TEXT/NARRATIVE: The patient is a 29-year-old female smoker who presents to the ER for coughing and difficulty breathing. Everyone in her family has been sick, but the kids have finally gotten over their respiratory illnesses. She has been coughing for approximately 2 weeks daily. She states that she has had a lot of upper nasal congestion intermittently and sometimes she cannot breathe through her nose. Some days she breathes out a lot of green snot, other days it is just simply a dry cough. However, when she is coughing a lot she has a hard time breathing. No fevers, no chills, no dyspnea with exertion unless she is coughing. No abdominal pain, vomiting or diarrhea. No leg swelling. She saw her primary care physician and they gave her an albuterol inhaler and told her that she had a viral infection. She stopped smoking about 4 days ago but is still coughing and cannot breathe. chest Pain Score (Numeric/FACES): 4 - Related Data Allergies Allergy/AdvReac Type Severity Reaction Status Date / Time Penicillins Allergy "veins Verified 01/04/20 19:38 felt like they were on fire" Home Meds: Home Meds Melatonin/Pyridoxine HCl (B6) [Melatonin 5 mg Tablet] 40 mg PO BEDTIME 11/05/19 [History] Acetaminophen/HYDROcodone [[place] 325-5 MG] 1 dose PO Q4H #20 tablet 11/19/19 [Rx ] clindamycin HCL [Cleocin HCl] 450 mg PO TID 5 Days #45 capsule 11/19/19 [Rx] Benzonatate [Tessalon Perle] 200 mg PO Q8HR PRN 10 Days #40 capsule 01/04/20 [Rx ] predniSONE [Prednisone] 60 mg PO DAILY 5 Days #15 tablet 01/04/20 [Rx] Past Medical History - Past Health History Medical/Surgical History: Denies Medical/Surgical History HEENT History: Reports: Other (See Below) Other HEENT History: wears glasses Cardiovascular History: Reports: None Respiratory History: Reports: None Gastrointestinal History: Reports: Other (See Below) Other Gastrointestinal History: occasional heartburn Genitourinary History: Reports: Renal 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: Musculoskeletal History: Reports: None Neurological History: Reports: Migraines Psychiatric History: Reports: Bipolar, Depression, Panic Attack Endocrine/Metabolic History: Reports: Obesity/BMI 30+ 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 Hematologic History: Reports: None Immunologic History: Reports: None Oncologic (Cancer) History: Reports: None Dermatologic History: Reports: Eczema - Infectious Disease History Infectious Disease History: Reports: None - Past Surgical History Head Surgeries/Procedures: Reports: None HEENT Surgical History: Reports: Oral Surgery Cardiovascular Surgical History: Reports: None Respiratory Surgical History: Reports: None GI Surgical History: Reports: None Female Surgical History: Reports: Tubal Ligation Neurological Surgical History: Reports: None Musculoskeletal Surgical History: Reports: None Oncologic Surgical History: Reports: None Dermatological Surgical History: Reports: None Social & Family History - Family History Family Medical History: Noncontributory - Tobacco Use Smoking Status *Q: Current Every Day Smoker Years of Tobacco use: 1 Packs/Tins Daily: 14 Tobacco Use Comment: states quit 4days ago - Caffeine Use Caffeine Use: Reports: Coffee - Recreational Drug Use Recreational Drug Use: No ED ROS GENERAL - Review of Systems Review Of Systems: See Below (Positive for cough, positive shortness of breath, positive for nasal congestion, all other Positives and pertinent negatives as per HPI. All other pertinent systems were reviewed and are negative) ED EXAM, GENERAL - Physical Exam Exam: See Below Free Text/Narrative:: Constitutional: Nontoxic, harsh bronchial cough, looks like she does not feel well HEENT.: Normocephalic, Atraumatic, PERRL, EOMI, External ears are atraumatic, nares are patent without epistaxis Neck: Normal range of motion, Trachea Midline, No stridor Respiratory.: The patient has no tachypnea, no accessory muscle usage, she has good aeration unless she is coughing and it is a very harsh bronchial cough with some end expiratory wheezing only when coughing, no rales or rhonchi Cardiovascular.: Regular rate and Rhythm without murmurs, rubs, or gallops, good peripheral perfusion GI: deferred Genital Urinary: Deferred Musculoskeletal: Good range of motion. All 4 extremities present and atraumatic , no edema Back: Full Range of Motion Skin: Warm, Dry, Color is ethnicity appropriate, No acute rash. Lymphatic: No lymphadenopathy noted Neurological: Alert, Awake and oriented x 3, No focal deficits noted appreciate , GCS 15 Psych: Affect, Judgement, mood normal Course - Vital Signs Text/Narrative:: History and exam are consistent with a viral syndrome, particular in someone who just stop smoking as well has a will be bringing up. She will be given a DuoNeb respiratory treatment, Tessalon Perles, and prednisone and prescriptions for them as well. Stable for discharge. Last Recorded V/S: Last Vital Signs Temp 36.6 C 01/04/20 19:38 Pulse 74 01/04/20 19:38 Resp 20 01/04/20 19:38 BP 121/62 01/04/20 19:38 Pulse Ox 95 01/04/20 19:38 - Orders/Labs/Meds Orders: Active Orders 24 hr Category Date Time Status RT Aerosol Therapy [RC] ASDIRECTED Care 01/04/20 20:03 Active Meds: Medications Discontinued Medications Generic Name Dose Route Start Last Admin Trade Name Freq PRN Reason Stop Dose Admin Albuterol/Ipratropium 6 ml 01/04/20 20:03 01/04/20 20:09 Duoneb 3.0-0.5 Mg/3 Ml NEB 01/04/20 20:04 6 ml ONETIME ONE Administration Benzonatate 200 mg 01/04/20 20:04 Tessalon Perles PO 01/04/20 20:05 ONETIME ONE Prednisone 80 mg 01/04/20 20:04 Prednisone PO 01/04/20 20:05 ONETIME ONE Departure - Departure Time of Disposition: 20:06 Disposition: Home, Self-Care 01 Condition: Good Clinical Impression: Viral syndrome, Bronchospasm - Discharge Information Prescriptions: Benzonatate [Tessalon Perle] 200 mg PO Q8HR PRN 10 Days #40 capsule PRN Reason: Cough predniSONE [Prednisone] 60 mg PO DAILY 5 Days #15 tablet Referrals: Gigi Charles MD [Primary Care Provider] - Forms: ED Department Discharge Additional Instructions: VIRAL SYNDROME This appears to be a viral syndrome. They are highly common and variable, causing fevers, colds, coughs, headaches, vomiting, diarrhea, etc. Antibiotics don't work on viruses, and they need to run their course. On average these last 7-10 days, depending upon the virus. There are some that even last up to several weeks. Rest, drink plenty of clear fluids, especially water. You want our urine to be clear to a light yellow. Ibuprofen 800 mg and Tylenol 1000 mg may be taken at the same time every 6 hours as needed for fevers and discomfort. Upper respiratory congestion and sore throats can be improved with cool liquids , humidifiers, cough drops with menthol, honey, tea with honey, and over-the- counter decongestants. Return to the ER if you develop difficulty breathing, or any other concerns. Sepsis Event Note - Evaluation Sepsis Screening Result: No Definite Risk - Focused Exam Vital Signs: Vital Signs Temp Pulse Resp BP Pulse Ox 01/04/20 19:38 36.6 C 74 20 121/62 95 Date Exam was Performed: 01/04/20 Time Exam was Performed: 20:14 - My Orders Last 24 Hours: My Active Orders 01/04/20 20:03 RT Aerosol Therapy [RC] ASDIRECTED - Assessment/Plan Last 24 Hours: My Active Orders 01/04/20 20:03 RT Aerosol Therapy [RC] ASDIRECTED
== END 2020-01-04 20:30 | disposition home or self-care (01) ==
LOC: MW.ED 18:27
DX: J98.01 Acute bronchospasm (principal); B34.9 Viral infection, unspecified; F31.9 Bipolar disorder, unspecified; E66.9 Obesity, unspecified; F17.210 Nicotine dependence, cigarettes, uncomplicated; Z88.0 Allergy status to penicillin; Z79.899 Other long term (current) drug therapy
CPT/HCPCS: 94640; 99284; A9270; J7620-GY

== ENCOUNTER 2020-06-28 14:01 | Emergency (ER) | payer SELFPAY ==
[2020-06-28] MEDS ORDERED: Budesonide 0.5 MG/2 ML Neb Susp NEB ONE (14:50)
--- NOTE | 2020-06-28 15:00 | EDM.PDOC ---
ED HPI GENERAL MEDICAL PROBLEM - General Chief Complaint: Respiratory Problem Stated Complaint: DIFFICULTY BREATHING Time Seen by Provider: 06/28/20 14:02 Source of Information: Reports: Patient History Limitations: Reports: No Limitations - History of Present Illness INITIAL COMMENTS - FREE TEXT/NARRATIVE: Presents reporting asthma. The patient states that she has been having trouble with wheezing and shortness of breath since early December. She saw her primary provider on December 30 and was told that she has asthma. She was given an albuterol HFA. Her symptoms persisted however and she saw her provider two additional times since then. At each visit she was just told to take her albuterol and no other work-up or interventions were mentioned. She states she has used 80 puffs on her albuterol HFA in the 1 week. No fever, sore throat, ear fullness, facial fullness, chest pain. The patient states that she has a 12-[id number] smoking history but quit in March. Sometimes in the evening she has postnasal drip that makes her cough and gag. She also has a history of bipolar disorder. She has been off of her medicines for a year because she cannot afford them. She has social anxiety disorder and does not leave the house. Bilateral Ear Pain Score (Numeric/FACES): 5 - Related Data Allergies Allergy/AdvReac Type Severity Reaction Status Date / Time Penicillins Allergy "veins Verified 01/04/20 19:38 felt like they were on fire" Home Meds: Home Meds Melatonin/Pyridoxine HCl (B6) [Melatonin 5 mg Tablet] 80 mg PO BEDTIME 11/05/19 [History] Albuterol Sulfate [Albuterol Sulfate Hfa] 8.5 gm IH Q6H PRN 06/28/20 [History] Budesonide/Formoterol [Symbicort 80-4.5 MCG] 2 puff INH BID #1 inhaler 06/28/20 [Rx] Past Medical History - Past Health History Medical/Surgical History: Denies Medical/Surgical History HEENT History: Reports: Other (See Below) Other HEENT History: wears glasses Cardiovascular History: Reports: None Respiratory History: Reports: None, Other (See Below) Other Respiratory History: bronchitis and pneumonia x1 Gastrointestinal History: Reports: Other (See Below) Other Gastrointestinal History: occasional heartburn Genitourinary History: Reports: 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: Musculoskeletal History: Reports: None Neurological History: Reports: Migraines Psychiatric History: Reports: Bipolar, Depression, Panic Attack Endocrine/Metabolic History: Reports: Obesity/BMI 30+ 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 Hematologic History: Reports: None Immunologic History: Reports: None Oncologic (Cancer) History: Reports: None Dermatologic History: Reports: Eczema - Infectious Disease History Infectious Disease History: Reports: Chicken Pox - Past Surgical History Head Surgeries/Procedures: Reports: None HEENT Surgical History: Reports: Oral Surgery Cardiovascular Surgical History: Reports: None Respiratory Surgical History: Reports: None GI Surgical History: Reports: None Female Surgical History: Reports: Tubal Ligation Neurological Surgical History: Reports: None Musculoskeletal Surgical History: Reports: None Oncologic Surgical History: Reports: None Dermatological Surgical History: Reports: None Social & Family History - Family History Family Medical History: Noncontributory - Tobacco Use Smoking Status *Q: Former Smoker Years of Tobacco use: 16 Used Tobacco, but Quit: Yes Month/Year Tobacco Last Used: 03/2020 Second Hand Smoke Exposure: No - Caffeine Use Caffeine Use: Reports: Coffee - Recreational Drug Use Recreational Drug Use: No ED ROS GENERAL - Review of Systems Review Of Systems: Comprehensive ROS is negative, except as noted in HPI. ED EXAM, GENERAL - Physical Exam Exam: See Below General Appearance: Alert, No Apparent Distress, Anxious Ears: Normal External Exam Nose: Normal Inspection Throat/Mouth: Normal Inspection Head: Atraumatic, Normocephalic Neck: Normal Inspection Respiratory/Chest: No Respiratory Distress, Lungs Clear, Normal Breath Sounds, No Accessory Muscle Use Cardiovascular: Normal Peripheral Pulses, Regular Rate, Rhythm, No Rub GI/Abdominal: Soft Neurological: Alert, Oriented Psychiatric: Normal Affect, Normal Mood, Other (talking fast) Skin Exam: Warm, Dry, Intact, Normal Color, No Rash Lymphatic: No Adenopathy Course - Vital Signs Last Recorded V/S: Last Vital Signs Temp 36.8 C 06/28/20 14:17 Pulse 90 06/28/20 14:17 Resp 20 06/28/20 14:17 BP 137/69 06/28/20 14:17 Pulse Ox 93 L 06/28/20 14:17 - Orders/Labs/Meds Orders: Active Orders 24 hr Category Date Time Status RT Aerosol Therapy [RC] ASDIRECTED Care 06/28/20 14:50 Ordered Meds: Medications Discontinued Medications Generic Name Dose Route Start Last Admin Trade Name Caden PRN Reason Stop Dose Admin Budesonide 0.5 mg 06/28/20 14:50 Pulmicort NEB 06/28/20 14:51 ONETIME ONE Departure - Departure Time of Disposition: 15:38 Disposition: Home, Self-Care 01 Condition: Good Clinical Impression: Mild persistent allergic asthma - Discharge Information Instructions: Asthma, Adult Referrals: PCP,None [Primary Care Provider] - Gigi Charles MD [Ordering Only Provider] - Forms: ED Department Discharge Additional Instructions: The following information is given to patients seen in the emergency department who are being discharged to home. This information is to outline your options for follow-up care. We provide all patients seen in our emergency department with a follow-up referral. The need for follow-up, as well as the timing and circumstances, are variable depending upon the specifics of your emergency department visit. If you don't have a primary care physician on staff, we will provide you with a referral. We always advise you to contact your personal physician following an emergency department visit to inform them of the circumstance of the visit and for follow-up with them and/or the need for any referrals to a consulting specialist. The emergency department will also refer you to a specialist when appropriate. This referral assures that you have the opportunity for follow-up care with a specialist. All of these measure are taken in an effort to provide you with optimal care, which includes your follow-up. Under all circumstances we always encourage you to contact your private physician who remains a resource for coordinating your care. When calling for follow-up care, please make the office aware that this follow-up is from your recent emergency room visit. If for any reason you are refused follow-up, please contact the [facility] Emergency Department at and asked to speak to the emergency department charge nurse. 1. Please follow-up with your primary provider to discuss management of your mild persistent asthma. You may need further testing with PFTs for an accurate diagnoses. In addition your anxiety is exacerbating your symptoms. Again dis cuss an anxiety management plan with your primary provider. 2. Use your inhaler 2 puffs twice daily on a regular basis. You have been given enough for a couple of weeks until you see your provider. Only use your albuterol inhaler as needed for acute shortness of breath and wheezing. Sepsis Event Note (ED) - Evaluation Sepsis Screening Result: No Definite Risk - Focused Exam Vital Signs: Vital Signs Temp Pulse Resp BP Pulse Ox 06/28/20 14:17 36.8 C 90 20 137/69 93 L - My Orders Last 24 Hours: My Active Orders 06/28/20 14:50 RT Aerosol Therapy [RC] ASDIRECTED - Assessment/Plan Last 24 Hours: My Active Orders 06/28/20 14:50 RT Aerosol Therapy [RC] ASDIRECTED
--- NOTE | 2020-06-28 15:35 | CR ---
Chest: 2 views of the chest were obtained. Comparison: Prior chest x-ray of 09/24/19. Heart size and mediastinum are normal. Lungs are clear with no acute parenchymal change. Bony structures appear within normal limits for the patient's age. Impression: 1. Nothing acute is seen on 2 view chest x-ray. Diagnostic code #1 Study was dictated in MDT
[2020-06-28] MEDS ORDERED: Albuterol/Ipratropium 3.0-0.5 MG/3 ML Neb Soln ONE (16:00)
== END 2020-06-28 16:26 | disposition home or self-care (01) ==
LOC: MW.ED 14:01
DX: J45.30 Mild persistent asthma, uncomplicated (principal); E66.9 Obesity, unspecified; Z68.41 Body mass index [BMI] 40.0-44.9, adult; Z87.891 Personal history of nicotine dependence; Z88.0 Allergy status to penicillin; Z79.899 Other long term (current) drug therapy
CPT/HCPCS: 71046; 71046-26; 94640; 99285-25; J7620-GY